=== PATIENT | male | born 1970 | race Asian ===

== ENCOUNTER 2018-11-13 08:37 | Emergency (ER) | payer SELFPAY ==
[~2018-11-13] VITALS: Ht 180.3 cm; Wt 77.3 kg
[2018-11-13 12:55] VITALS: BP 123/79
== END 2018-11-13 12:59 | disposition home or self-care (01) ==
LOC: EMS 08:39
DX: J40 Bronchitis, not specified as acute or chronic (principal); F17.210 Nicotine dependence, cigarettes, uncomplicated
CPT/HCPCS: 87430; 99406